=== PATIENT | female | born 1970 | race African-American/Black ===

== ENCOUNTER 2022-01-20 08:41 | Emergency (ER) | payer SELFPAY ==
[~2022-01-20] VITALS: Ht 162.6 cm; Wt 83.9 kg
--- NOTE | 2022-01-20 09:00 | NUR ---
The patient bibs for c/o feeling dizzy since 0500. nausea, vomited x 1 pilot captain. The patient denies chest pain. In room air and denies SOB. Respiration regular and unlabored. The patient is attached to the monitor. Warm blanket provided for comfort. Will continue to monitor the patient.
--- NOTE | 2022-01-20 09:14 | NUR ---
IV LINE IS ESTABLISHED, BLOOD SPECIMEN COLLECTED AND SENT TO THE LAB. THE LINE IS SALINE LOCKED.
[2022-01-20] MEDS ORDERED: ONDANSETRON HCL/PF - ER 4 MG/2 ML VIAL IV ONE (10:00)
[2022-01-20] MEDS ORDERED: IV NS 0.9% 1,000 ML IV ONE (10:00)
[2022-01-20] MEDS ORDERED: MECLIZINE HCL 12.5 MG TABLET PO ONE (10:00)
[2022-01-20] MEDS ORDERED: ONDANSETRON HCL/PF 4 MG/2 ML VIAL ONE (10:06)
[2022-01-20] MEDS ORDERED: MECLIZINE HCL 25 MG TABLET ONE (10:06)
[2022-01-20 10:15] LABS: BASOPHILS % (AUTO) 0.6 % (0.0-2.0); EOSINOPHILS % (AUTO) 0.1 % (0.0-6.0); HEMATOCRIT 36 % (33-45); HEMOGLOBIN 11.7 g/dL (11.5-14.8); LYMPHOCYTES # (AUTO) 1.5 K/uL (0.8-4.8); LYMPHOCYTES % (AUTO) 19.6 % (20.0-44.0); MEAN CORPUSCULAR HGB CONC 33 g/dl (31.0-36.0); MEAN CORPUSCULAR VOLUME 85 fL (82-100); MONOCYTES # (AUTO) 0.5 K/uL (0.1-1.30); MONOCYTES % (AUTO) 6.2 % (2.0-12.0); NEUTROPHILS # (AUTO) 5.7 K/uL (1.8-8.9); NEUTROPHILS % (AUTO) 73.5 % (43.0-81.0); PLATELET COUNT (AUTO) 291 K/uL (150-450); RED BLOOD CELL COUNT(AUTO) 4.23 MIL/uL (4.0-5.2); WHITE BLOOD COUNT (AUTO) 7.7 K/uL (4.3-11.0)
--- NOTE | 2022-01-20 10:53 | NUR ---
URINE COLLECTED AND SENT TO THE LAB
[2022-01-20 11:07] LABS: CALCIUM, SERUM 9.2 mg/dL (8.5-10.1); CREATININE 0.8 mg/dL (0.6-1.3); POTASSIUM 4.2 mmol/L (3.5-5.1)
[2022-01-20 11:17] LABS: BILIRUBIN,URINE NEGATIVE (NEGATIVE); COLOR,URINE YELLOW (YELLOW); LEUKOCYTE ESTERASE ,URINE SMALL (NEGATIVE); NITRITE, URINE NEGATIVE (NEGATIVE); PROTEIN,URINE NEGATIVE (NEGATIVE); UGLUCOSE NEGATIVE (NEGATIVE); UROBILINOGEN,URINE 0.2 EU/dL (0.2)
[2022-01-20 11:32] LABS: BACTERIA,URINE Rare /HPF (None Seen); RBC,URINE 0-2 /HPF (0-2); SQUAMOUS EPITHELIAL CELL,UR Few /HPF (None Seen); WBC,URINE 0-2 /HPF (0-3)
[2022-01-20] MEDS ORDERED: MECL-159 PO (12:30)
[2022-01-20] MEDS ORDERED: ONDA4TAB5 PO (12:30)
[2022-01-20 12:43] VITALS: BP 121/85
--- NOTE | 2022-01-20 12:43 | NUR ---
The patient is alert and oriented x4. In room air and denies SOB. Respiration regulr and unlabored. Denies pain. Denies having dizziness. IV removed. Catheter intact and site benign. Pressure and 4x4 applied to site. No bleeding noted.Patient discharged to home in stable condition. Written and verbal after care instructions given. Patient verbalizes understanding of instruction.
== END 2022-01-20 12:44 | disposition home or self-care (01) ==
LOC: ER 08:45
DX: R42 Dizziness and giddiness (principal); F41.9 Anxiety disorder, unspecified; F32.A Depression, unspecified
CPT/HCPCS: 99283; 96374; 96361; 85025; 80048; 87086; 84703; 81001; 36415; J8597; J2405 ×2; J7030